=== PATIENT | female | born 1945 | race Caucasian/White ===

== ENCOUNTER → 2016-10-19 | Outpatient (CLI) | payer OTHER, BC ==
--- NOTE | 2016-10-19 19:10 | DX ---
AP Pelvis Clinical Indications: Pain following trauma in a 71-year-old female; no previous studies are availab le for comparison. Findings: No or other acute osseous abnormality is identified. No significant degenerative changes a re seen involving the hips. Degenerative changes are noted involving the lower lumbar spine and there is sclerosis about the right sacroiliac joint. Impression: 1. Negative for hip fracture. 2. Degenerative changes are seen.
== END ==
LOC: FLAB 13:25
PROVIDERS: ATTEND Internal Medicine
DX: M25.559 Pain in unspecified hip (principal)